=== PATIENT | male | born 1945 | race Caucasian/White ===

== ENCOUNTER 2018-05-18 12:00 | Emergency (ER) | payer OTHER ==
[2018-05-18 14:08] LABS: PLATELET COUNT 264 10^3/uL (150-400)
--- NOTE | 2018-05-18 14:25 | EDPHY ---
H & P Stated Complaint: L flank pain Time Seen by Provider: 05/18/18 13:55 HPI/ROS: CHIEF COMPLAINT: back pain HISTORY OF PRESENT ILLNESS: 72-year-old male presents with left back pain. Onset left-sided back pain 5 days ago. The pain is moderate to severe and increases with position change and bending over. Pain keeps him up at night. Heavy lifting of an outdoor swing on the day prior to onset of pain. Not taking OTC pain medication. Concerned about kidney stone. No abdominal pain, vomiting, fever, urinary symptoms. REVIEW OF SYSTEMS: complete 10 point ROS reviewed and is negative except for the noted elements in the HPI - Personal History Current Tetanus/Diphtheria Vaccine: Yes Current Tetanus Diphtheria and Acellular Pertussis (TDAP): Yes - Medical/Surgical History Hx Asthma: No Hx Chronic Respiratory Disease: No Hx Diabetes: No Hx Cardiac Disease: No Hx Renal Disease: No Hx Cirrhosis: No Hx Alcoholism: No Hx HIV/AIDS: No Hx Splenectomy or Spleen Trauma: No Other PMH: colonoscopy 04/27/18, shoulder surgery - Social History Smoking Status: Never smoked Alcohol Use: Sober Drug Use: None Additional Social History: - Physical Exam Exam: General Appearance: Alert, pleasant, appears in pain with any movement Eyes: Pupils equal and round, no conjunctival pallor or injection ENT, Mouth: Mucous membranes moist Neck: Normal inspection Respiratory: Lungs are clear to auscultation Cardiovascular: Regular rate and rhythm Gastrointestinal: Abdomen is soft and nontender, no pulsatile mass Back: left paraspinous tenderness in the lumbar area, no CVA tenderness Neurological: A&O, motor/sensory grossly intact, slow and steady gait Skin: Warm and dry, no rash on back/flank Extremities: Normal inspection Psychiatric: Mood and affect normal Constitutional: Initial Vital Signs Temperature (C) 36.3 C 05/18/18 12:12 Heart Rate 70 05/18/18 12:12 Respiratory Rate 19 05/18/18 12:12 Blood Pressure 141/81 H 05/18/18 12:12 O2 Sat (%) 96 05/18/18 12:12 O2 Delivery Mode Room Air Allergies/Adverse Reactions: No Known Allergies Allergy (Unverified 05/18/18 12:12) Home Medications: Medication Instructions Recorded Aspirin 81mg (*) 05/18/18 Medical Decision Making - Diagnostics Imaging Results: Abdomen/Pelvis CT 05/18/18 14:22 Impression: 1. No evidence of urinary tract calculus. 2. No significant abnormality identified within the abdomen and pelvis. 3. Disk bulge at L2-L3 more prominent left paracentral with moderate spinal and neuroforaminal stenosis. 4. Uncomplicated diverticulosis sigmoid colon Imaging: Discussed imaging studies w/ early childhood aide classroom Radiologist ED Course/Re-evaluation: This pt presents with left sided back pain. Clinical history and exam suggests musculoskeletal etiology. Pt quite concerned about kidney stone d/t severity of pain. CT abd/pelvis ordered and reveals L2/3 disc protrusion, likely etiology of pt's pain. Pt reluctant to take any medication. Encouraged ibuprofen/ tylenol and lidocaine patches. Warning signs discussed, f/u PCP Differential Diagnosis: Differential diagnosis includes though it is not limited to appendicitis, cholecystitis, diverticulitis, pyelonephritis, bowel perforation, small bowel obstruction. - Data Points Laboratory Results: Laboratory Results 05/18/18 13:45 05/18/18 13:45 Medications Given: Discontinued Medications Ketorolac Tromethamine (Toradol) 15 mg IVP EDNOW ONE Stop: 05/18/18 15:43 Last Admin: 05/18/18 16:02 Dose: 15 mg Miscellaneous Medication (Icy Hot Lidocaine/Menthol 4%/1% Patch) 1 patch TD EDNOW ONE Stop: 05/18/18 16:14 Last Admin: 05/18/18 16:36 Dose: 1 patch Point of Care Test Results: Chemistry 05/18/18 14:03 POC Sodium 142 mEq/L mEq/L (135-145) POC Potassium 3.6 mEq/L mEq/L (3.3-5.0) POC Chloride 103 mEq/L mEq/L (97-110) POC Total CO2 24 mEq/L mEq/L (22-31) POC BUN 15 mg/dL mg/dL (7-23) POC Creatinine 1.0 mg/dL mg/dL (0.7-1.3) POC Glucose 106 mg/dL H mg/dL (70-100) ISTAT H&H 05/18/18 14:03 POC Hgb 18.0 gm/dL H gm/dL (13.7-17.5) POC Hct 53 % H % (40-51) Departure - Departure Disposition: Home, Routine, Self-Care Clinical Impression: Back pain Qualifiers: Back pain location: low back pain Chronicity: acute Back pain laterality: left Sciatica presence: without sciatica Qualified Code(s): M54.5 - Low back pain Condition: Good Instructions: Acute Low Back Pain (ED) Additional Instructions: Your CT scan shows a mild disk bulging at L2. This is likely contributing to your symptoms. Ibuprofen 600 mg 3 times daily while the pain persists. Tylenol 650 mg every 4 hr as needed for pain. Use a lidocaine patch as directed on packaging. Return for worsening symptoms or any concerns. Referrals: Jaskaran Lane MD [Primary Care Provider] - As per Instructions (Keep your appointment for later this week. )
[2018-05-18] MEDS ORDERED: KETOROLAC 15 MG/1 ML SDV IVP ONE (15:42)
[2018-05-18] MEDS ORDERED: LIDOCAINE 4%/MENTHOL 1% PATCH TD ONE (16:13)
[2018-05-18 16:38] VITALS: BP 133/100
[2018-05-18] MEDS ORDERED: PATCH REMOVAL 1 EA PATCH TD SCH (21:00)
== END 2018-05-18 16:46 | disposition home or self-care (01) ==
DX: M54.5 Low back pain (principal)
CPT/HCPCS: 74176; 96374; 99285; J1885; 82435-PO; 82565-PO; 82947-PO; 84132-PO; 84295-PO; 84520-PO; 85014-ER